=== PATIENT | female | born 1985 | race Caucasian/White ===

== ENCOUNTER 2016-06-11 18:59 | Emergency (ER) | payer OTHER ==
--- NOTE | 2016-06-11 20:39 | EDDOCDS ---
Physician Documentation [facility] Name: Salma Gordon Age: 30 yrs Sex: Female : 1985 Arrival Date: 06/11/2016 Time: 18:59 Bed TR7 Private MD: Karl Yates R. Disposition: 06/11/16 20:34 Discharged to Home/Self Care. Impression: Chest pain on breathing. - Condition is Stable. - Discharge Instructions: Chest Wall Pain. - Medication Reconciliation form. - Follow up: Karl Yates; When: Call to arrange an appointment; Reason: Wound/Symptom Recheck, Recheck today's complaints, Worsening of conditions, Continuance of care. - Problem is new. - Symptoms are unchanged. Historical: - Allergies: No known drug Allergies; - Home Meds: 1. Zyrtec 5 mg oral tab 1 tab once daily 2. Zoloft 50 mg Oral tab 1 tab once daily 3. Wellbutrin 100 mg Oral tab 1 tab 2 times per day - PMHx: Seasonal Allergies; Depression; Anxiety; - PSHx: Right LE ortho surgery; Breast Augmentation; Tubes in ears; - Social history: Smoking status: Patient states was never smoker of tobacco. No barriers to communication noted, The patient speaks fluent Icelandic, Speaks appropriately for age. - Family history: Not pertinent. - : The pt / caregiver states he / she is not on anticoagulants. Home medication list is obtained from the patient. - Exposure Risk Screening:: None identified. 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 8 in. (172.72 cm) (R); Pain 1/10; 20:36 BP 130 / 80; Pulse 88; Resp 18; Temp 98.8(O); Pulse Ox 98% on R/A; Pain 0/10; jmb 19:01 Body Mass Index 42.57 (127.01 kg, 172.72 cm) jrd MDM: 19:11 ECG WITH READING ER PHYS+CARDIAG ordered. EDMS Signatures: Dispatcher [employer] EDMS Soto,Enrrique,RN RN jmb Mu Ma, BETHC PA-C cc10 MTDD
--- NOTE | 2016-06-11 20:39 | EDDOCDS ---
Nurse's Notes [facility] Name: Salma Gordon Age: 30 yrs Sex: Female : 1985 Arrival Date: 06/11/2016 Time: 18:59 Bed TR7 Private MD: Karl Yates R. Diagnosis: Chest pain on breathing Presentation: 06/11 19:06 Presenting complaint: Patient states: Patient reports that she went to urgent care [facility] earlier today and reported to them that she had chest pain and was sent here. Patient seen at urgent care at 1130 a.m. Patient reports that it had just started less than an hour ago after being seen at urgent care and informed to come to ER. Aspirin was not taken prior to arrival. Adult Sepsis Screening: The patient does not have new or worsening altered mentation. Patient's respiratory rate is less than 22. Systolic blood pressure is greater than 100. Patient has a qSOFA score of 0- Negative Sepsis Screen. Suicide/Homicide risk assessment- the patient denies having any suicidal and/or homicidal ideations and does not present with any other emotional, behavioral or mental health complaints. Status: Patient is not a director of home health services or dependent. Transition of care: patient was not received from another setting of care. 19:06 Acuity: LIDA Level 3 [facility] 19:06 Method Of Arrival: Walkin/Carried/Asstd [facility] Triage Assessment: 19:09 General: Appears in no apparent distress, Behavior is appropriate for age, cooperative. b Pain: Location: chest Pain currently is 1 out of 10 on a pain scale. HIV screening NA for this visit Offered previously. Neurological: Level of Consciousness is awake, alert, obeys commands, Oriented to person, place, time, Speech is normal, Facial symmetry appears normal, Facial symmetry: tongue is midline. Cardiovascular: Chest pain is described as Pain is 1 out of 10 on a pain scale. radiates Does not radiate. episodes are intermittent began 1 hour prior to arrival. Respiratory: Airway is patent Respiratory effort is even, unlabored, Respiratory pattern is regular, symmetrical. Derm: Skin is pink, warm & dry. Musculoskeletal: Range of motion intact in all extremities. 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 Zyrtec 5 mg oral tab 1 tab once daily 2. Zoloft 50 mg Oral tab 1 tab once daily 3. Wellbutrin 100 mg Oral tab 1 tab 2 times per day - PMHx: Seasonal Allergies; Depression; Anxiety; - PSHx: Right LE ortho surgery; Breast Augmentation; Tubes in ears; - Social history: Smoking status: Patient states was never smoker of tobacco. No barriers to communication noted, The patient speaks fluent Turkish, Speaks appropriately for age. - Family history: Not pertinent. - : The pt / caregiver states he / she is not on anticoagulants. Home medication list is obtained from the patient. - Exposure Risk Screening:: None identified. Screenin:36 Screening information is obtained from the patient. Fall risk: No risks identified. jmb Assistance ADL's: requires no assistance with activities of daily living. Abuse/DV Screen: The patient / caregiver reports he/she is: not in a situation that causes fear, pain or injury. Nutritional screening: No deficits noted. Advance Directives: Currently, there is no health care proxy. There is no active DNR order. There is no living will. There is no Power of Electrocardiographic Technician. home support is adequate. Assessment: 20:36 General: Patient instructed on discharge instructions. Patient asked if there were any [facility] questions regarding discharge, patient stated no. Patient signed discharge instructions. Patient discharged in stable condition. . Cardiovascular: Rhythm is regular. Vital Signs: 19:01 BP 137 / 82; Pulse 93; Resp 16; Temp 99.2(O); Pulse Ox 98% on R/A; Weight 127.01 kg rust (R); Height 5 ft. 8 in. (172.72 cm) (R); Pain 1/10; 20:36 BP 130 / 80; Pulse 88; Resp 18; Temp 98.8(O); Pulse Ox 98% on R/A; Pain 0/10; jmb 19:01 Body Mass Index 42.57 (127.01 kg, 172.72 cm) rust Vitals: 19: Log In Time: June 11, 2016 at 18:55. rust ED Course: 19:00 Patient visited by Senthil Brownlee PCA. jrd 19:00 Patient moved to Waiting d 19:01 Karl Yates is Private Physician. jrd 19:03 Patient visited by Kem, Senthil, ACCOUNT MANAGER FOREST SERVICE. jrd 19:04 Patient moved to Pre RCE jrd 19:07 Triage Initiated jmb 19:17 EKG done. (by ED staff). Reviewed by Justyna Li MD. ar3 20:04 Patient moved to Triage 2 mb9 20:29 Mu Ma PA-C is PHCP. cc10 20:29 Ray Peres DO is Attending Physician. cc10 20:29 Patient visited by Mu Ma PA-C. cc10 20:29 Patient visited by Mu Ma PA-C. cc10 20:34 Karl Yates is Referral Physician. cc10 20:36 The patient / caregiver is instructed regarding the plan of care and ED course. Cardiac jmb monitoring not applicable on this patient. 20:36 No IV's were initiated during this patient's visit. No procedures done that require jmb assistance. 20:38 Patient moved to TR7 ar3 Order Results: There are currently no results for this order. Outcome: 20:34 Discharge ordered by Provider. cc10 20:36 Discharge Assessment: Patient awake, alert and oriented x 3. No cognitive and/or jmb functional deficits noted. Patient verbalized understanding of disposition instructions. Patient awake and alert. obeys commands, Oriented to person, place and time. Patient verbalized understanding of disposition instructions. Patient has no functional deficits. patient administered narcotics - no. The following High Risk Discharge criteria are identified: None. Discharged to home ambulatory, with family. Condition: stable Condition: improved. Discharge instructions given to patient, Instructed on discharge instructions, follow up and referral plans. Demonstrated understanding of instructions, Pt was receptive of discharge instructions/ teaching. No special radiology studies were completed. Property sent home with patient. 20:39 Patient left the ED. jmb Signatures: Rosalba Srivastava, ACCOUNT MANAGER FOREST SERVICE ACCOUNT MANAGER FOREST SERVICE ar3 Enrrique Soto RN RN jmb [place]iski, Colin, PA-C PA-C cc10 Senthil Brownlee, ACCOUNT MANAGER FOREST SERVICE ACCOUNT MANAGER FOREST SERVICE jrd Obdulio EvansRN RN mb9 MTDD
--- NOTE | 2016-06-13 08:18 | ECGEPIP ---
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
--- NOTE | 2016-06-13 21:40 | EDDOCDS ---
Physician Documentation [facility] Name: Salma Gordon Age: 30 yrs Sex: Female : 1985 Arrival Date: 06/11/2016 Time: 18:59 Bed TR7 Private MD: Karl Yates R. Disposition: 06/11/16 20:34 Discharged to Home/Self Care. Impression: Chest pain on breathing. - Condition is Stable. - Discharge Instructions: Chest Wall Pain. - Medication Reconciliation form. - Follow up: Karl Yates; When: Call to arrange an appointment; Reason: Wound/Symptom Recheck, Recheck today's complaints, Worsening of conditions, Continuance of care. - Problem is new. - Symptoms are unchanged. Historical: - Allergies: No known drug Allergies; - Home Meds: 1. Zyrtec 5 mg oral tab 1 tab once daily 2. Zoloft 50 mg Oral tab 1 tab once daily 3. Wellbutrin 100 mg Oral tab 1 tab 2 times per day - PMHx: Seasonal Allergies; Depression; Anxiety; - PSHx: Right LE ortho surgery; Breast Augmentation; Tubes in ears; - Social history: Smoking status: Patient states was never smoker of tobacco. No barriers to communication noted, The patient speaks fluent Occitan, Speaks appropriately for age. - Family history: Not pertinent. - : The pt / caregiver states he / she is not on anticoagulants. Home medication list is obtained from the patient. - Exposure Risk Screening:: None identified. 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 8 in. (172.72 cm) (R); Pain 1/10; 20:36 BP 130 / 80; Pulse 88; Resp 18; Temp 98.8(O); Pulse Ox 98% on R/A; Pain 0/10; jmb 19:01 Body Mass Index 42.57 (127.01 kg, 172.72 cm) jrd MDM: 19:11 ECG WITH READING ER PHYS+CARDIAG ordered. EDMS 06/12 11:49 T-Sheet-- Draft Copy was scanned into MEDHOST and attached to record. gb 11:49 ECG/EKG was scanned into MED[employer] and attached to record. gb Signatures: Dispatcher [employer] EDMariah Thompson, Reg Reg Enrrique Hernandez, RN RN Mu Henderson, PAHenriettaC PAHenriettaC cc10 The chart was reviewed and I authenticate all verbal orders and agree with the evaluation and treatment provided.Attachments: 11:49 T-Sheet-- Draft Copy gb 11:49 ECG/EKG gb Chart Complete MTDD
--- NOTE | 2016-06-13 21:40 | EDDOCDS ---
Physician Documentation [facility] Name: Salma Gordon Age: 30 yrs Sex: Female : 1985 Arrival Date: 06/11/2016 Time: 18:59 Bed TR7 Private MD: Karl Yates R. Disposition: 06/11/16 20:34 Discharged to Home/Self Care. Impression: Chest pain on breathing. - Condition is Stable. - Discharge Instructions: Chest Wall Pain. - Medication Reconciliation form. - Follow up: Karl Yates; When: Call to arrange an appointment; Reason: Wound/Symptom Recheck, Recheck today's complaints, Worsening of conditions, Continuance of care. - Problem is new. - Symptoms are unchanged. Historical: - Allergies: No known drug Allergies; - Home Meds: 1. Zyrtec 5 mg oral tab 1 tab once daily 2. Zoloft 50 mg Oral tab 1 tab once daily 3. Wellbutrin 100 mg Oral tab 1 tab 2 times per day - PMHx: Seasonal Allergies; Depression; Anxiety; - PSHx: Right LE ortho surgery; Breast Augmentation; Tubes in ears; - Social history: Smoking status: Patient states was never smoker of tobacco. No barriers to communication noted, The patient speaks fluent Yoruba, Speaks appropriately for age. - Family history: Not pertinent. - : The pt / caregiver states he / she is not on anticoagulants. Home medication list is obtained from the patient. - Exposure Risk Screening:: None identified. 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 8 in. (172.72 cm) (R); Pain 1/10; 20:36 BP 130 / 80; Pulse 88; Resp 18; Temp 98.8(O); Pulse Ox 98% on R/A; Pain 0/10; jmb 19:01 Body Mass Index 42.57 (127.01 kg, 172.72 cm) jrd MDM: 19:11 ECG WITH READING ER PHYS+CARDIAG ordered. EDMS 06/12 11:49 T-Sheet-- Draft Copy was scanned into MEDHOST and attached to record. gb 11:49 ECG/EKG was scanned into MEDHOST and attached to record. gb Signatures: Dispatcher [employer] EDMariah Thompson, Reg Reg Enrrique Hernandez, RN RN Mu Henderson, PAHenriettaC PAHenriettaC cc10 The chart was reviewed and I authenticate all verbal orders and agree with the evaluation and treatment provided.Attachments: 11:49 T-Sheet-- Draft Copy gb 11:49 ECG/EKG gb Chart Complete MTDD
--- NOTE | 2016-06-13 21:41 | EDDOCDS ---
Nurse's Notes [facility] Name: Salma Gordon Age: 30 yrs Sex: Female : 1985 Arrival Date: 06/11/2016 Time: 18:59 Bed TR7 Private MD: Karl Yates R. Diagnosis: Chest pain on breathing Presentation: 06/11 19:06 Presenting complaint: Patient states: Patient reports that she went to urgent care [facility] earlier today and reported to them that she had chest pain and was sent here. Patient seen at urgent care at 1130 a.m. Patient reports that it had just started less than an hour ago after being seen at urgent care and informed to come to ER. Aspirin was not taken prior to arrival. Adult Sepsis Screening: The patient does not have new or worsening altered mentation. Patient's respiratory rate is less than 22. Systolic blood pressure is greater than 100. Patient has a qSOFA score of 0- Negative Sepsis Screen. Suicide/Homicide risk assessment- the patient denies having any suicidal and/or homicidal ideations and does not present with any other emotional, behavioral or mental health complaints. Status: Patient is not a check services clerk or dependent. Transition of care: patient was not received from another setting of care. 19:06 Acuity: LIDA Level 3 [facility] 19:06 Method Of Arrival: Walkin/Carried/Asstd [facility] Triage Assessment: 19:09 General: Appears in no apparent distress, Behavior is appropriate for age, cooperative. b Pain: Location: chest Pain currently is 1 out of 10 on a pain scale. HIV screening NA for this visit Offered previously. Neurological: Level of Consciousness is awake, alert, obeys commands, Oriented to person, place, time, Speech is normal, Facial symmetry appears normal, Facial symmetry: tongue is midline. Cardiovascular: Chest pain is described as Pain is 1 out of 10 on a pain scale. radiates Does not radiate. episodes are intermittent began 1 hour prior to arrival. Respiratory: Airway is patent Respiratory effort is even, unlabored, Respiratory pattern is regular, symmetrical. Derm: Skin is pink, warm & dry. Musculoskeletal: Range of motion intact in all extremities. 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 Zyrtec 5 mg oral tab 1 tab once daily 2. Zoloft 50 mg Oral tab 1 tab once daily 3. Wellbutrin 100 mg Oral tab 1 tab 2 times per day - PMHx: Seasonal Allergies; Depression; Anxiety; - PSHx: Right LE ortho surgery; Breast Augmentation; Tubes in ears; - Social history: Smoking status: Patient states was never smoker of tobacco. No barriers to communication noted, The patient speaks fluent Mohawk, Speaks appropriately for age. - Family history: Not pertinent. - : The pt / caregiver states he / she is not on anticoagulants. Home medication list is obtained from the patient. - Exposure Risk Screening:: None identified. Screenin:36 Screening information is obtained from the patient. Fall risk: No risks identified. jmb Assistance ADL's: requires no assistance with activities of daily living. Abuse/DV Screen: The patient / caregiver reports he/she is: not in a situation that causes fear, pain or injury. Nutritional screening: No deficits noted. Advance Directives: Currently, there is no health care proxy. There is no active DNR order. There is no living will. There is no Power of Pharmacy Clinical Coordinator. home support is adequate. Assessment: 20:36 General: Patient instructed on discharge instructions. Patient asked if there were any [facility] questions regarding discharge, patient stated no. Patient signed discharge instructions. Patient discharged in stable condition. . Cardiovascular: Rhythm is regular. Vital Signs: 19:01 BP 137 / 82; Pulse 93; Resp 16; Temp 99.2(O); Pulse Ox 98% on R/A; Weight 127.[address] [facility] (R); Height 5 ft. 8 in. (172.72 cm) (R); Pain 1/10; 20:36 BP 130 / 80; Pulse 88; Resp 18; Temp 98.8(O); Pulse Ox 98% on R/A; Pain 0/10; jmb 19:01 Body Mass Index 42.57 (127.01 kg, 172.72 cm) [facility] Vitals: 19: Log In Time: June 11, 2016 at 18:55. [facility] ED Course: 19:00 Patient visited by Senthil Brownlee PCA. jrd 19:00 Patient moved to Waiting d 19:01 Karl Yates is Private Physician. jrd 19:03 Patient visited by Senthil rBownlee PCA. jrd 19:04 Patient moved to Pre RCE jrd 19:07 Triage Initiated jmb 19:17 EKG done. (by ED staff). Reviewed by Justyna Li MD. ar3 20:04 Patient moved to Triage 2 mb9 20:29 Mu Ma PA-C is PHCP. cc10 20:29 Ray Peres DO is Attending Physician. cc10 20:29 Patient visited by Mu Ma PA-C. cc10 20:29 Patient visited by Mu Ma PA-C. cc10 20:34 Karl Yates is Referral Physician. cc10 20:36 The patient / caregiver is instructed regarding the plan of care and ED course. Cardiac jmb monitoring not applicable on this patient. 20:36 No IV's were initiated during this patient's visit. No procedures done that require jmb assistance. 20:38 Patient moved to TR7 ar3 06/12 11:49 T-Sheet-- Draft Copy was scanned into Access[employer] and attached to record. gb 11:49 ECG/EKG was scanned into [employer] and attached to record. gb 06/13 08:41 EKG-ADULT Returned. EDMS Order Results: Radiology Order: EKG-ADULT Test: EKG-ADULT REASON FOR EXAMINATION: Chest Pain; Stationary ECG Study; [facility] - ED; ; Test Date: 2016-06-11; Pat Name: SALMA GORDON Department:; Room: -; Gender: F Physician Aide: ramon; : 1985 Requested By: Justyna Li; Order Number: [id number] Reading MD: Justyna Li; Measurements; Intervals [place]; Rate: 75 P: 35; [place]: 130 QRS: -1; QRSD: 92 T: 29; QT: 360; QTc: 405; Interpretive Statements; SINUS RHYTHM; NO PRIOR FOR COMPARISON; Electronically Signed On 06-13-2016 8:18:10 EST by Justyna Li; Outcome: 06/11 20:34 Discharge ordered by Provider. cc10 20:36 Discharge Assessment: Patient awake, alert and oriented x 3. No cognitive and/or jmb functional deficits noted. Patient verbalized understanding of disposition instructions. Patient awake and alert. obeys commands, Oriented to person, place and time. Patient verbalized understanding of disposition instructions. Patient has no functional deficits. patient administered narcotics - no. The following High Risk Discharge criteria are identified: None. Discharged to home ambulatory, with family. Condition: stable Condition: improved. Discharge instructions given to patient, Instructed on discharge instructions, follow up and referral plans. Demonstrated understanding of instructions, Pt was receptive of discharge instructions/ teaching. No special radiology studies were completed. Property sent home with patient. 20:39 Patient left the ED. arslan Signatures: Dispatcher [employer] EDMS Mariah Rose, Reg Reg gb Rosalba Srivastava, MACHINE TRIMMER MACHINE TRIMMER ar3 Enrrique Soto, RN RN Mu Henderson, PA-C PA-C cc10 Senthil Brownlee, MACHINE TRIMMER MACHINE TRIMMER d Obdulio Evans,RN RN mb9 Chart Complete MTDD
== END 2016-06-11 20:39 | disposition home or self-care (01) ==
LOC: M ED 18:59
DX: R07.89 Other chest pain (principal); J30.2 Other seasonal allergic rhinitis; F32.9 Major depressive disorder, single episode, unspecified; F41.9 Anxiety disorder, unspecified; Z96.22 Myringotomy tube(s) status; Z79.899 Other long term (current) drug therapy
CPT/HCPCS: 29515; 73610; 93005; 99283; G0463

== ENCOUNTER → 2016-06-11 | Outpatient (CLI) | payer OTHER ==
--- NOTE | 2016-06-11 12:43 | REP ---
Clinical: Trauma. Injury. Technique: AP, lateral, bilateral oblique views of the right ankle. Comparison: 01/22/2014. Findings: Diffuse lateral soft tissue swelling is appreciated with nondisplaced transverse fracture of the medial malleolus. Ankle mortise intact. Impression: Nondisplaced fracture of the medial malleolus with soft tissue swelling. Signed by Ramos Galloway MD 06/11/2016 12:35 P
== END ==
LOC: M LRY 12:17
PROVIDERS: ATTEND Nurse Practitioner Family
DX: S82.54XA Nondisplaced fracture of medial malleolus of right tibia, initial encounter for closed fracture (principal); X58.XXXA Exposure to other specified factors, initial encounter; Y92.89 Other specified places as the place of occurrence of the external cause; Y93.89 Activity, other specified; Y99.8 Other external cause status